=== PATIENT | male | born 1945 | race Asian ===

== ENCOUNTER 2017-09-06 10:20 | Inpatient (IN) | payer OTHER ==
--- NOTE | 2017-08-31 18:12 | GHP ---
[f rep st] HISTORY AND PHYSICAL DATE OF ADMISSION: 09/06/2017 HISTORY OF PRESENT ILLNESS: The patient is a 72-year-old male who has back and leg pain. He has low er back pain that is constant. There are no alleviating factors for his pain. Carrying objects grea ter than 5 pounds will worsen his pain. He rates his back pain at a 1 to 2/10. He has bilateral leg pain that radiates posteriorly to the feet. He feels a pulling sensation with standing upright or w alking. He rates his leg pain at a 6 to 7/10. The leg pain is constant and nothing makes the pain b yannick. He has numbness in his bilateral feet. He feels that he has likely weakness that is generali zed and worse on the left. Denies loss of bowel or bladder control. He has tried physical therapy w ithout relief. He has also had bilateral S1 epidural steroid injections and L3-4 epidural steroid in jections without any relief. PAST MEDICAL HISTORY: Diabetes, enlarged prostate. PAST SURGICAL HISTORY: Cataracts, stomach surgery, cervical fusion. SOCIAL HISTORY: Patient admits to alcohol use socially. Denies tobacco use. FAMILY HISTORY: No pertinent neurosurgical family history. REVIEW OF SYSTEMS: Negative, except for what is mentioned in the HPI. ALLERGIES: No known drug allergies. CURRENT HOME MEDICATION: Flomax. PHYSICAL EXAMINATION: Patient appears to be in no apparent distress. Mood and affect are appropriat e. Alert and oriented. Extraocular movements are intact. Pupils are equal and reactive. Facial ex pression is symmetrical. Tongue is midline with protrusion. Hearing is grossly intact to finger rub . Speech is fluent without dysarthria. Muscle strength is well preserved in the upper and lower ext remities at a 5/5 and sensation is intact to light touch. ASSESSMENT AND PLAN: In summary, the patient is a 72-year-old male with back and leg pain. He has a n MRI of the lumbar spine completed at [facility] in May of 2016 that reveals mode rate central canal stenosis secondary to moderate bilateral facet arthropathy and disk bulge at L3-4. At the L4-5 level, there is severe central canal stenosis secondary to degenerative grade 1 spondyl olisthesis, severe bilateral facet arthropathy, and disk bulge. He had an EMG in August 2016 that revealed mild chronic bilateral left worse than right L5 radiculopathies without acute ongoing denerv ation. No evidence of peripheral neuropathy. We recommend proceeding with surgical intervention at this point as his pain is affecting his quality of life. We recommend a transforaminal lumbar interb paul fusion at L4-5. Given the spondylolisthesis and facet arthropathy, adequate decompression could not be achieved without complete facetectomy necessitating a transforaminal lumber interbody fusion. The risks, benefits, and procedure were discussed in detail with the patient. The patient has agree d to proceed and has signed consent. All questions and concerns were addressed and answered. /[id number]/MODL
[~2017-09-06 10:20] MED LIST: ceFAZolin 2 GM/SWFI 2 GM/20 ML SYR IVP ONE
[2017-09-06] MEDS ORDERED: ACETAMINOPHEN 500 MG TAB PO ONE (11:11)
[2017-09-06] MEDS ORDERED: GABAPENTIN 300 MG CAP PO ONE (11:11)
[2017-09-06] MEDS ORDERED: morphINE SR 15 MG TAB PO ONE (11:11)
[2017-09-06] MEDS ORDERED: THROMBIN (BOVINE) 20,000 UNIT VIAL TP ONE (11:39)
[2017-09-06] MEDS ORDERED: CHLORHEXIDINE GLUC HIBICLENS 118 ML BTL TP ONE (11:39)
[2017-09-06] MEDS ORDERED: BACITRACIN 50,000 UNITS/10 ML SYR IRR ONE ×2 (11:40→15:15)
[2017-09-06] MEDS ORDERED: BUPIVACAINE 0.25% 30 ML SDV ONE (11:44)
[2017-09-06 11:50] LABS: APTT 28.6 SEC (23.0-38.0)
[2017-09-06] MEDS ORDERED: PROPOFOL 200 MG/20 ML VIAL ONE (11:54)
[2017-09-06] MEDS ORDERED: PROPOFOL/EMULSION 500 MG/50 ML BOTTLE IV ONE ×2 (11:54→16:31)
[2017-09-06] MEDS ORDERED: fentaNYL 100 MCG/2 ML INJ ONE (11:54)
[2017-09-06] MEDS ORDERED: REMIFENTANIL HCL 1 MG VIAL ONE ×2 (11:54)
[2017-09-06 11:59] LABS: ANION GAP 12 mEq/L (8-16); CARBON DIOXIDE 26 mEq/l (22-31); CHLORIDE 106 mEq/L (97-110); CREATININE 0.9 mg/dL (0.7-1.3); GLOMERULAR FILTRATION RATE > 60; GLUCOSE 125 mg/dL (70-100); POTASSIUM 4.6 mEq/L (3.5-5.2); SODIUM 144 mEq/L (134-144)
[2017-09-06 12:22] LABS: INR 0.95 (0.83-1.16); PROTIME(PATIENT) 12.9 SEC (12.0-15.0)
--- NOTE | 2017-09-06 13:21 | PDHPUP ---
History & Physical Update H&P update statement: This history and physical update is based on an assessment of the patient which was completed after admission or registration (within 24 hours), but prior to the surgery/procedure. H&P update: H&P reviewed & patient examined, no change in patient's condition since H&P completed
[2017-09-06] MEDS ORDERED: MIDAZOLAM 2 MG/2 ML VIAL IVP ONE (13:22)
--- NOTE | 2017-09-06 13:22 | PDANEPAE ---
ANE History of Present Illness Patient presents for TLIF ANE Past Medical History - Cardiovascular History Hx Hypertension: No Hx Arrhythmias: No Hx Chest Pain: No Hx Coronary Artery / Peripheral Vascular Disease: No Hx CHF / Valvular Disease: No Hx Palpitations: No - Pulmonary History Hx COPD: No Hx Asthma/Reactive Airway Disease: No Hx Recent Upper Respiratory Infection: No Hx Oxygen in Use at Home: No Hx Sleep Apnea: No Sleep Apnea Screening Result - Last Documented: Negative - Neurologic History Hx Cerebrovascular Accident: No Hx Seizures: No Hx Dementia: No - Endocrine History Hx Diabetes: No - Renal History Hx Renal Disorders: Yes Renal History Comment: pt on flomax - Liver History Hx Hepatic Disorders: No - Neurological & Psychiatric Hx Hx Neurological and Psychiatric Disorders: No - Cancer History Hx Cancer: Yes Cancer History Comment: gastric - Congenital Disorder History Hx Congenital Disorders: No - GI History Hx Gastrointestinal Disorders: Yes Gastrointestinal History Comment: reflux - Other Health History Other Health History: none - Chronic Pain History Chronic Pain: No - Surgical History Prior Surgeries: partial gastrectomy 2011 ANE Review of Systems Review of Systems: - Exercise capacity METS (RN): 4 METS ANE Patient History - Allergies Allergies/Adverse Reactions: No Allergies [NKA] Allergy (Verified 08/15/17 14:38) - Home Medications Home medications: home medication list seen and reviewed Home Medications: Tamsulosin HCl [Flomax 0.4 MG (*)] 0.4 mg PO DAILY 08/11/17 [Last Taken 09/05/17 ] - NPO status NPO Status: no food or drink >8 hours NPO Since - Liquids (Date): 09/05/17 NPO Since - Liquids (Time): 22:00 NPO Since - Solids (Date): 09/05/17 NPO Since - Solids (Time): 18:30 - Anes Hx Anes Hx: no prior problems - Smoking Hx Smoking Status: Never smoked - Family Anes Hx Family Hx Anesthesia Complications: none ANE Labs/Vital Signs - Labs Result Diagrams: 09/06/17 11:25 09/06/17 11:25 - Vital Signs Blood Pressure: 137/73 Heart Rate: 66 Respiratory Rate: 17 O2 Sat (%): 96 Height: 160.02 cm Weight: 58.967 kg ANE Physical Exam - Airway Neck exam: decreased ROM Mallampati Score: Class 2 Mouth exam: normal dental/mouth exam - Pulmonary Pulmonary: no respiratory distress - Cardiovascular Cardiovascular: regular rate and rhythym - ASA Status ASA Status: II ANE Anesthesia Plan Anesthesia Plan: general endotracheal anesthesia (RBA discussed)
[2017-09-06] MEDS ORDERED: ceFAZolin 2 GM/SWFI 20 ML SYR IVP ONE (14:03)
[2017-09-06] MEDS ORDERED: HYDROmorphONE/DILAUDID 2 MG/ML INJ ONE (16:13)
[2017-09-06] MEDS ORDERED: epHEDrine SULFATE 10 MG/ML SYR ONE (17:34)
[2017-09-06] MEDS ORDERED: SUGAMMADEX SODIUM 200 MG/2 ML VIAL IVP ONE (17:34)
[2017-09-06] MEDS ORDERED: PHENYLEPHRINE HCL 100 MCG/ML SYR ONE (17:34)
[2017-09-06] MEDS ORDERED: ROCURONIUM 50 MG/5 ML VIAL ONE (17:34)
[2017-09-06] MEDS ORDERED: LIDOCAINE 2% 5 ML SDV ONE (17:34)
[2017-09-06] MEDS ORDERED: BISACODYL 10 MG SUPP PR PRN (17:50)
[2017-09-06] MEDS ORDERED: MAGNESIUM HYDROXIDE 30 ML UDCUP PO PRN (17:50)
[2017-09-06] MEDS ORDERED: diphenhydrAMINE 25 MG CAP PO PRN (17:50)
[2017-09-06] MEDS ORDERED: POLYETHYLENE GLYCOL 3350 17 GM PKT PO PRN (17:50)
[2017-09-06] MEDS ORDERED: ONDANSETRON 4 MG/2 ML VIAL IVP PRN ×2 (17:50→17:53)
[2017-09-06] MEDS ORDERED: ONDANSETRON DISINTEGRATING 4 MG TAB PO PRN (17:50)
[2017-09-06] MEDS ORDERED: LACTULOSE 20 GM/30 ML UDCUP PO PRN (17:50)
[2017-09-06] MEDS ORDERED: NALOXONE HCL 0.4 MG/ML INJ IVP PRN (17:53)
[2017-09-06] MEDS ORDERED: LR 500 ML IV PRN (17:53)
[2017-09-06] MEDS ORDERED: OXYCODONE/APAP 5/325 TAB PO PRN (17:53)
[2017-09-06] MEDS ORDERED: HYDROmorphONE/DILAUDID 1 MG/ML INJ IVP PRN (17:53)
[2017-09-06] MEDS ORDERED: fentaNYL 100 MCG/2 ML INJ IVP PRN (17:53)
[2017-09-06] MEDS ORDERED: HYDROCODONE/APAP 5/325 TAB PO PRN (17:53)
[2017-09-06] MEDS ORDERED: NS W/ 20 KCl/L 1,000 ML IV SCH (18:00)
--- NOTE | 2017-09-06 18:10 | GOP ---
[f rep st] OPERATIVE REPORT DATE OF OPERATION: 09/06/2017 SURGEON: Yi Romo DO NEUROSURGEON: Yi Romo DO. FORM SETTER STE[employer] FORMS: TISHA Cherry. PREOPERATIVE DIAGNOSIS: Lumbar spondylosis, lumbar stenosis, radiculopathy. POSTOPERATIVE DIAGNOSIS: Lumbar spondylosis, lumbar stenosis, radiculopathy. PROCEDURE PERFORMED: L4-5 transforaminal lumbar interbody fusion with L4 and L5 posterior pedicle sc rews with Medtronic Solera screws and L4-5 interbody graft with 9 x 28 Medtronic Elevate cage, autogr aft, allograft posterior arthrodesis, BMP, microscope stealth. FINDINGS: SPECIMENS: None. ESTIMATED BLOOD LOSS: 100 mL. INDICATIONS: This is a 72-year-old male with severe back pain and left leg pain secondary to critica l stenosis, facet hypertrophy, lumbar spondylosis who has failed conservative management elected to m ove forward with TLIF. TLIF was required to completely remove the facet to decompress. DESCRIPTION OF PROCEDURE: He was identified, consented. Sites were marked. Brought to the operatin g room, anesthetized under general endotracheal tube anesthesia, rolled onto the Asaf table. All pressure points were appropriately padded. He was prepped and draped in the usual sterile fashion. O arm was brought in. An 18-gauge spinal needle was introduced and x-ray was performed. The incisio n site was marked. Incision was anesthetized with 0.5% Marcaine with epinephrine. Incision was made with a 10 blade. Hemostasis was obtained with Bovie and bipolar cautery, dissecting down onto the l aminae of L4 and L5 and around the facet joint of L4-5. Hemostasis was obtained with bipolar and Aqu amantys. Cerebellar retractors were used. Once we had dissected down, we placed a Parul, took an x- ray verified we were in appropriate position. Placed a FlowCardia stealth frame and performed a stere otactic spin. Used Leksell to remove the large hypertrophic facet joints bilaterally and found a olga reotactic starting point for L5. Used the awl stereotactically, then used the power-ease tap and the n measured a 6.5 x 50 mm screw on that left side. Verified with a ball-tipped probe the screw site a nd placed the screws stereotactically. The cerebellar got caught underneath the screw head once we r eleased it. We had lost stereotaxis so we respun for stereotaxis for the other 3 screws, and it show ed that the screw was in good position although slightly long so it was backed up with a naked cdl company flatbed driver . We then stereotactically went up to L4 on the left and following the same procedure as described china rowe, placed a 6.5 x 40 mm screw at L4 on the right, placed a 6.5 x 50 mm screw in L5 on the right, p laced a 6.5 x 45 mm screw. Stimmed all screws, all screws stimmed above 20. Performed a stereotacti c spin and all screws were in good position. We then used the stealth to locate the facet on the rig ht side to completely decorticate and drill out the facet joint preparing it for fusion. We then ana sured 35 mm rods, placed them into the screw heads, locked them down. Placed slight distraction and locked them down with the torque wrench verifying we had domitila above and below and the domitila was the appr opriate length. We then brought in the microscope using the Dakotah, removed the interspinous ligame nt in the spinous process and using high-speed drill and a combination of Kerrison performed a mary ctomy and complete facetectomy on the left side. Once the nerve root was identified, it was decompre ssed pedicle to pedicle. The disc space had been identified. We retracted this medially with a Medt ronic nerve root retractor and with an 11 blade, and using sequential luke shaved up to 12 mm sushant ving all disc and cartilaginous endplate. We then prepared the endplates with a ring curette. Once the endplates were well prepared, we under x-ray trialed a 9 x 28 cage and this was the appropriate s ize. It was chosen. BMP and the patient's own bone were packed anteriorly into the space. BMP and the patient's own bone were packed into the cage. The cage was tamped into place and under x-ray was in good position in the AP and lateral. We also visualized the posterior aspect of the graft and it was in good position. It was completely deployed. And then the microscope was brought out. The in cision was copiously irrigated with over 2 L of gentamicin infused saline. BMP and the patient's own bone, as well as some DBM and bone chips were packed into the facet joint and out laterally bilatera lly. We then trocared a drain out inferiorly after meticulous hemostasis had been obtained. Placed a drain in the subfascial space. Closed the fascia with 0 Vicryl pop-offs, cutaneous layer with 3-0 Vicryl pop-offs. The skin was closed with a 4-0 Monocryl subcuticular stitch and Steri-Strips. Drai n was sutured with a 2-0 Vicryl pop-off placed to bulb suction. The wound was dressed with Xeroform gauze and Medipore tape. Patient tolerated procedure well. This concludes dictation on patient FLUIDS: 2200 mL of crystalloid. URINE OUTPUT: 800 mL. DRAINS: One LIAN in the subfascial space to bulb suction. COMPLICATIONS: None. /[id number]/MODL
--- NOTE | 2017-09-06 18:26 | POSTANESTH ---
Post Anesthetic Evaluation Cardiovascular Status: Similar to Pre-Op Cond Respiratory Status: Similar to Pre-op Cond. Level of Consciousness/Mental Status: Mildly Sleepy, Arousable Pain Control: Adequate, Prn Tx Ordered Nausea/Vomiting Control: Adequate, Prn Tx Ordered Complications Possibly Related to Anesthesia: None Noted
--- NOTE | 2017-09-06 18:34 | POSTOPPROG ---
Post Op Note Date of Operation: 09/06/17 Surgeon: Yi Romo Poultry Vaccinator: Kadie Monterroso PA-C Anesthesiologist: Dr. De La Rosa Anesthesia: GET(General Endotracheal) Pre-op Diagnosis: Lumbar stenosis Post-op Diagnosis: Lumbar stenosis Procedure: TLIF at L4/5 Inf/Abcess present in the surg proc area at time of surgery?: No Depth: Deep Incisional (Fascial) EBL: 50-100 Drains: Asaf King Plan Plan: 72 yo male s/p TLIF at L4/5 - neuro checks - pain control - LIAN drain x 1 - brace on when out of bed - PT/OT - postop L-spine x-rays tomorrow - lovenox ordered to start 09/08 Patient seen and examined in recovery. Awake. Opens eyes Following commands Moving all ext Incision with dressing
[2017-09-06] MEDS ORDERED: HYDROmorphONE/DILAUDID 1 MG/ML INJ ONE (19:09)
[2017-09-06] MEDS: ceFAZolin 2 GM/DEXTROSE 100 ML IV SCH (22:16)
[2017-09-06] MEDS: SENNOSIDES/DOCUSATE SODIUM TAB PO SCH (22:17)
[2017-09-06] MEDS: FAMOTIDINE 20 MG TAB PO SCH (22:17)
[2017-09-06] MEDS: ACETAMINOPHEN 500 MG TAB PO SCH (22:17)
[2017-09-07] MEDS: ACETAMINOPHEN 500 MG TAB PO SCH ×3 (05:08→22:36)
[2017-09-07] MEDS: ceFAZolin 2 GM/DEXTROSE 100 ML IV SCH (05:08)
--- NOTE | 2017-09-07 08:31 | NEUSURGPN ---
Assessment/Plan: 72 yo male s/p TLIF at L4/5 POD#1 - neuro checks - pain control - LIAN drain x 1 - continue - brace on when out of bed - PT/OT - postop L-spine x-rays pending - TEDs, SCDs, lovenox ordered to start 09/08 - D/w Dr Romo - Call NS with any questions or concerns Subjective: Pt resting in bed, states pain well managed. Slept well overnight. Denies leg pain. Objective: AAOx3 NAD VSS MAEx4 Motor 5/5 BUE/BLE +LT LIAN drain in place Urinary Catheter in Place: No Catheter Insertion Date: 09/06/17 - Physician Discussed Patient with : Demetrius Neurosurgery Physical Exam - Vitals, I&O, Labs I and O 09/06/17 09/07/17 09/08/17 05:59 05:59 05:59 Intake Total 3655 Output Total 390 760 Balance 3265 -760 Weight 58.967 kg Intake: Oral (ml) 430 IV Intake (ml) 3000 IV Infused (ml) 225 ceFAZolin 2 GM/DEXTROSE 225 100 ml @ 200 mls/hr IV Q8HRS [facility] Rx#:[id number] Output: Urine (ml) 150 600 Catheter 150 600 Estimated Blood Loss (ml) 100 LIAN Drain Output (ml) 140 160 #1 Back Asaf King 140 160 Vital Signs Temp Pulse Resp BP Pulse Ox 36.9 C 58 L 16 99/53 L 98 09/07/17 04:00 09/07/17 04:00 09/07/17 04:00 09/07/17 04:00 09/07/17 04:00 Laboratory Results 09/06/17 11:25 09/06/17 11:25 ICD10 Worksheet Patient Problems: Problems Problem Status Onset Lumbar degenerative disc disease Acute - ICD10 Problem Qualifiers (1) Lumbar degenerative disc disease
[2017-09-07] MEDS: SENNOSIDES/DOCUSATE SODIUM TAB PO SCH ×2 (09:09→19:35)
[2017-09-07] MEDS: FAMOTIDINE 20 MG TAB PO SCH ×2 (09:10→19:35)
[2017-09-07] MEDS: TAMSULOSIN HCL 0.4 MG CAP PO SCH (09:10)
[2017-09-07] MEDS: oxyCODONE IR 5 MG TAB PO PRN ×2 (13:44→19:34)
--- NOTE | 2017-09-07 16:10 | ASMTCMCOM ---
CM Note CM Note Notes: POD #1 TLIF, pt resides w and has family support. Therapy note indicates pt preferred health care language is Hmong, and according to RN pt is capable in Zambian. PT rec home vs. HHC, OT rec home vs. HHC. Pt may want/need HHC, CM to follow for d/c needs. Date Signed: 09/07/2017 04:09 PM Electronically Signed By:MARELY Duron
[2017-09-07] MEDS: METHOCARBAMOL 750 MG TAB PO PRN (19:34)
[2017-09-08] MEDS: oxyCODONE IR 5 MG TAB PO PRN ×5 (04:49→21:55)
[2017-09-08] MEDS: METHOCARBAMOL 750 MG TAB PO PRN ×2 (04:49→20:34)
[2017-09-08] MEDS: ACETAMINOPHEN 500 MG TAB PO SCH ×3 (05:33→21:55)
--- NOTE | 2017-09-08 07:41 | NEUSURGPN ---
Assessment/Plan: 72 yo male s/p TLIF at L4/5 POD#2 - neuro checks - pain control - LIAN drain x 1 - continue and monitor output - hypotension, continue to monitor and encourage fluids. Had dizziness with standing yesterday. If symptomatic today will give fluid bolus. - brace on when out of bed - PT/OT - postop L-spine x-rays pending - TEDs, SCDs, lovenox ordered to start 09/08 - D/w Dr Romo - Call NS with any questions or concerns Subjective: Pt resting in bed, c/o pain in his low back that improves with medication. States he was dizzy with standing yesterday. Objective: AAOx3 NAD VSS MAEx4 Motor 5/5 BLE Incision cdi dressed JPx1 +LT Urinary Catheter in Place: No Catheter Insertion Date: 09/06/17 - Physician Discussed Patient with Dr.: Romo Neurosurgery Physical Exam - Vitals, I&O, Labs I and O 09/07/17 09/08/17 09/09/17 05:59 05:59 05:59 Intake Total 3655 520 Output Total 390 2145 Balance 3265 -1625 Weight 58.967 kg Intake: Oral (ml) 430 520 IV Intake (ml) 3000 IV Infused (ml) 225 ceFAZolin 2 GM/DEXTROSE 225 100 ml @ 200 mls/hr IV Q8HRS [facility] Rx#:[id number] Output: Urine (ml) 150 1800 Catheter 150 600 Urinal 1200 Estimated Blood Loss (ml) 100 LIAN Drain Output (ml) 140 345 #1 Back Asaf King 140 345 Other: Number of Voids Urinal 1 Bladder Scan Volume (ml) Urinal 291 Vital Signs Temp Pulse Resp BP Pulse Ox 36.9 C 63 16 113/54 L 94 09/08/17 04:00 09/08/17 04:00 09/08/17 04:00 09/08/17 04:00 09/08/17 04:00 Laboratory Results 09/06/17 11:25 09/06/17 11:25 ICD10 Worksheet Patient Problems: Problems Problem Status Onset Lumbar degenerative disc disease Acute - ICD10 Problem Qualifiers (1) Lumbar degenerative disc disease
[2017-09-08] MEDS: ENOXAPARIN 40 MG/0.4 ML SYR SC SCH (09:42)
[2017-09-08] MEDS: TAMSULOSIN HCL 0.4 MG CAP PO SCH (09:43)
[2017-09-08] MEDS: FAMOTIDINE 20 MG TAB PO SCH ×2 (09:43→20:34)
[2017-09-08] MEDS: SENNOSIDES/DOCUSATE SODIUM TAB PO SCH ×2 (09:43→20:34)
--- NOTE | 2017-09-08 14:54 | ASMTCMCOM ---
CM Note CM Note Notes: Spoke w pt and dghtr who decline HHC, report pt will f/u w outpatient PT. Pt medically stable for d/c, no CM d/c needs identified. Date Signed: 09/08/2017 02:53 PM Electronically Signed By:MARELY Duron
[2017-09-09] MEDS: ACETAMINOPHEN 500 MG TAB PO SCH (04:38)
[2017-09-09] MEDS: oxyCODONE IR 5 MG TAB PO PRN ×2 (04:38→10:18)
[2017-09-09 07:27] VITALS: O2SAT 92
--- NOTE | 2017-09-09 07:41 | NEUSURGPN ---
Date of Surgery: 09/06/17 Post Op Day: 3 Assessment/Plan: Assessment: 72 yo male s/p TLIF at L4/5 POD #3 Plan: -continue with neuro checks -continue with current pain control-pt with better RLE pain but will add Gabapentin for pain control as well -LIAN drain removed -hypotension, continue to monitor and encourage fluids. Had dizziness with standing 2 days ago-better now -brace on when out of bed -PT/OT-CPM -postop L-spine x-rays reviewed and look good -TEDs, SCDs, lovenox ordered to start 09/08 -D/W Dr Romo -Call NS with any questions or concerns -pt understands and agrees and wants to go home as well Subjective: No new complaints or concerns. No f/c/n/v/d. No barrientos/neck/chest/abd or gu complaints. Eating/drinking and voiding fine. Objective: AAO x 3, PERRLA/EOMI no droop CN 2-12 grossly intact +lt touch 5/5 BUE/BLE CDI Neuro Check Frequency: per routine Urinary Catheter in Place: No Catheter Insertion Date: 09/06/17 - Physician Discussed Patient with : Demetrius Neurosurgery Physical Exam - Vitals, I&O, Labs I and O 09/08/17 09/09/17 09/10/17 05:59 05:59 05:59 Intake Total 520 2600 Output Total 2145 340 Balance -1625 2260 Intake: Oral (ml) 520 2600 Output: Urine (ml) 1800 300 Catheter 600 Urinal 1200 300 LIAN Drain Output (ml) 345 40 #1 Back Asaf King 345 40 Other: Intake Quantity Yes Sufficient Number of Voids Urinal 1 4 Bladder Scan Volume (ml) Urinal 291 Vital Signs Temp Pulse Resp BP Pulse Ox 36.8 C 69 16 110/57 L 92 09/09/17 07:21 09/09/17 07:21 09/09/17 07:21 09/09/17 07:21 09/09/17 07:21 Laboratory Results 09/06/17 11:25 09/06/17 11:25 ICD10 Worksheet Patient Problems: Problems Problem Status Onset Lumbar degenerative disc disease Acute
[2017-09-09] MEDS: ENOXAPARIN 40 MG/0.4 ML SYR SC SCH (08:13)
[2017-09-09] MEDS: SENNOSIDES/DOCUSATE SODIUM TAB PO SCH (08:13)
[2017-09-09] MEDS: FAMOTIDINE 20 MG TAB PO SCH (08:14)
[2017-09-09] MEDS: METHOCARBAMOL 750 MG TAB PO PRN (08:14)
[2017-09-09] MEDS: TAMSULOSIN HCL 0.4 MG CAP PO SCH (08:14)
[2017-09-09] MEDS ORDERED: GABAPENTIN 300 MG CAP PO SCH (09:00)
[2017-09-09 11:44] VITALS: BP 118/68; PULSE 68; RESP 12; TEMP 98.6
--- NOTE | 2017-09-09 14:37 | ASDISCHSUM ---
Discharge Information Plan Status:Home with No Needs Medically Cleared to Leave: Discharge Date:09/09/2017 01:14 PM CM D/C Disposition:Home, Routine, Self-Care ADT D/C Disposition:Home, Routine, Self-Care Projected Discharge Date:09/09/2017 01:14 PM Transportation at D/C: Discharge Delay Reason: Follow-Up Date:09/09/2017 01:14 PM Discharge Slot: Final Diagnosis: Placement Information Patient Contact Information Contact Name:EDEL Relationship:Daughter Address: City:[place] Alternate Phone: [facility]/Zip Code:[place] Email: Financial Information Financial Class:Medicare Advantage Plans Primary Plan Desc:[employer] GOLD MEDICARE Primary Plan Number:[id number] Secondary Plan Desc: Secondary Plan Number: Assessment Information [facility] CM Progress Note CM Note CM Note Notes: POD #1 TLIF, pt resides w and has family support. Therapy note indicates pt preferred health care language is Hmong, and according to RN pt is capable in Mongolian. PT rec home vs. HHC, OT rec home vs. HHC. Pt may want/need HHC, CM to follow for d/c needs. Date Signed: 09/07/2017 04:09 PM Electronically Signed By:MARELY Duron [facility] CM Progress Note CM Note CM Note Notes: Spoke w pt and dghtr who decline HHC, report pt will f/u w outpatient PT. Pt medically stable for d/c, no CM d/c needs identified. Date Signed: 09/08/2017 02:53 PM Electronically Signed By:MARELY Duron BC CM Progress Note CM Note CM Note Notes: Pt did not d/c yesterday and is medically stable for d/c today, no CM needs identified. Date Signed: 09/09/2017 02:36 PM Electronically Signed By:MARELY Duron Intervention Information Intervention Type:*IM-Signed Date of Service:09/08/2017 02:45 PM Patient Type:Inpatient Staff Member:Zara Leigh Hours: Discipline: Severity: Comment:
== END 2017-09-09 13:14 | disposition home or self-care (01) | DRG 455 ==
LOC: F3N 10:20
PROVIDERS: ADMIT Neurological Surgery; ATTEND Neurological Surgery
DX: M47.26 Other spondylosis with radiculopathy, lumbar region (principal); M48.061 Spinal stenosis, lumbar region without neurogenic claudication; E11.9 Type 2 diabetes mellitus without complications; N40.0 Benign prostatic hyperplasia without lower urinary tract symptoms; K21.9 Gastro-esophageal reflux disease without esophagitis
CPT/HCPCS: 97110-GO; 97116-GP; 97161-GP; 97166-GO; 97530-GO; 97535-GO; C1713; G8978-GP-CJ; G8979-GP-CI; G8987-GO-CJ; G8988-GO-CI; J0171; J0690; J1170; J1650; J2250; J2370; J2405; J2704; J3010